=== PATIENT | female | born 1995 | race Caucasian/White ===

== ENCOUNTER 2017-05-10 05:34 | Outpatient (CLI) | payer OTHER ==
[~2017-05-10] VITALS: Ht 157.5 cm; Wt 65.8 kg
[2017-05-10] MEDS ORDERED: NORE-45 PO (09:16)
== END 2017-05-10 09:33 ==
LOC: PREOP 05:34
PROVIDERS: ATTEND Surgery
DX: Z01.818 Encounter for other preprocedural examination (principal); L72.9 Follicular cyst of the skin and subcutaneous tissue, unspecified

== ENCOUNTER 2017-05-16 08:33 | Day surgery (SDC) | payer OTHER ==
[~2017-05-16] VITALS: Ht 157.5 cm; Wt 65.8 kg
[~2017-05-16 08:33] MED LIST: NORE-45 PO
--- OUTSIDE RECORDS SUMMARY | 2017-05-16 08:37 | XMS REPORT | Referral Summary ---
Author Author Via [facility] Shrestha, Kiki, Optometry Organization [facility] Christopher, Kiki, Optometry Address Unknown Phone Unavailable Care Team Providers Care Shearer Helper Name Role Phone BunnyMiguel PCP Encounter VC Date(s): 08/17/15 - 08/17/15 [facility] Shrestha, Kiki, Optometry [address] [place], [place] [address] Discharge Diagnosis: Giant papillary conjunctivitis Discharge Disposition: 01-Home or Self Care Attending Physician: Ayanna Nolen OD Admitting Physician: Ayanna Nolen OD Vital Signs No data available for this section Problem List Condition Effective Dates Status Health Status Informant Contact lens Active intolerance(Confirme d) Giant papillary Active conjunctivitis(Confi rmed) Myopia with Active astigmatism and presbyopia(Confirmed ) Allergies, Adverse Reactions, Alerts Substance Reaction Severity Status amoxicillin Active Cipro Active Septra DS Rash Active Hives Medications estradiol 0.5 mg oral tablet 1 tabs, Oral, Daily, # 30 tabs, 0 Refill(s), Pharmacy: [facility] [id number], 1 tabs Oral Daily Start Date: 04/23/14 Status: Ordered Ortho-Novum 1/35 oral tablet See Instructions, 1 TABS ORAL DAILY, # 28 tabs, eRx: [facility] [id number] , 1 TABS ORAL DAILY Start Date: 08/13/15 Status: Ordered Results No data available for this section Immunizations Vaccine Date Refusal Reason tetanus/diphth/pertuss (Tdap) adult/adol 01/09/10 pneumococcal 23-polyvalent vaccine 01/17/09 varicella virus vaccine 01/09/10 varicella virus vaccine 01/17/09 Procedures No data available for this section Social History Social History Type Response Smoking Status Never smoker Assessment and Plan Extracted from: Title: Ambulatory Patient Education Author: Ayanna Nolen OD Date: Follow Up With: Where: When: Ayanna Nolen [address]; [place] [address] [facility] (1) In 1 week 08/24/2015 Comments: Extracted from: Title: GHADA MENDEZ GPC Author: Ayanna Nolen OD Date: 08/17/15 Impression and Plan Diagnosis Giant papillary conjunctivitis ([id number] H10.89, Discharge, Medical). Course: Improving. Plan: Due to significant improvement in papillae we are going to continue with drops x 1 week. We will order new trials of Biofinity Toric and Purevision Toric 8.7 -1.00-0.75x90/-1.25-0.75x80 and hold for RCK appt in 1 week. Explained all findings/plan to patient. RTc 1 week RCK. Patient Instructions: ; Ayanna Nolen In 1 week 08/24/2015. Counseled: Patient, Regarding diagnosis, Regarding medications, Verbalized understanding. Prescription: Ophthalmology Rx ([facility]) No qualifying data available.
--- OUTSIDE RECORDS SUMMARY | 2017-05-16 08:37 | XMS REPORT | Referral Summary ---
Author Author [facility] Shrestha, Kiki, [facility] Address Unknown Phone Unavailable Care Team Providers Care Loss Control Engineer Name Role Phone Miguel Hollis PCP Encounter VC Date(s): 09/07/15 - 09/07/15 [facility] Shrestha, Kiki, Optometry [address] [place], [place] [address] Discharge Diagnosis: Myopia with astigmatism and presbyopia Discharge Diagnosis: Giant papillary conjunctivitis Discharge Disposition: [...] Daily, # 30 tabs, 0 Refill(s), Pharmacy: [id number], 1 tabs Oral Daily Start Date: 04/23/14 Status: Ordered Ortho-Novum 1/35 oral tablet See Instructions, 1 TABS ORAL DAILY, # 28 tabs, eRx: [facility] [id number] , 1 TABS ORAL DAILY Start Date: [...] Patient Education Author: Ayanna Nolen OD Date: 09/06 Ophthalmology Myopia Nearsightedness (myopia) is when objects that are far away cannot be seen clearly. This usually happens because the eye is either longer than normal or bends (refracts) the light too much. As a result, the image is blurred. Myopia also often develops in the pre-teen years and progresses through the teens. You may see them holding things close to their eyes to see. You may also notice children sitting close to the television or white board in school. It generally stabilizes by the end of the teenage years. Myopia that continues to develop is called progressive myopia. CAUSES Growth spurts in children. Certain drugs and medicines. Some other causes of myopia (secondary myopia) can happen from other medical conditions such as: Developing cataracts. High blood sugar (e.g. uncontrolled diabetes). . Premature . Other diseases of the eye. SYMPTOMS People with myopia have blurred vision in the affected eye(s) for anything far away, but can usually find a point up close at which they can see clearly. DIAGNOSIS An customs and border protection officer or mystery shopper can diagnose myopia with tests using a series of lenses in front of the eye and the eye reading chart. TREATMENT Glasses or contact lenses. Ophthalmologists can use painless laser treatments to change the shape of the clear covering at the front of the eye (cornea). SEEK IMMEDIATE MEDICAL CARE IF: You get a rapid blurring of vision in one or both eyes. This information is not intended to replace advice given to you by your health care provider. Make sure you discuss any questions you have with your health care provider. Document Released: 05/20/2006 Document Revised: 08/11/2012 Document Reviewed: ExitCare Patient Information 2015 [employer]. Follow Up With: Where: When: Ayanna Nolen [address]; Via [place] [id number] [facility] (1) In 1 year 09/06/2016 Comments: Extracted from: Title: GHADA CLP AND ANDREA GPC Author: Ayanna Nolen OD Date: 09/07/15 Impression and Plan Diagnosis Myopia with astigmatism and presbyopia ([id number] H52.13, Discharge, Medical). Giant papillary conjunctivitis ([id number]-HL H10.89, Discharge, Medical). Course: 1. chronic/stable 2. improving. Plan: 1. Due to good VA, fit, handling and patient comfort we will stay with Biofinity Toric 8.7 -1.00-0.75x90/-1.50-0.75x80 and order 1 box/eye. We will call patient for pick-up. Monitor at annual or PRN per changes/concerns 2. Patient is to use her last bottle of Pataday 1 gtt BID OU and when it is gone we are going to discontinue drop therapy. If patient has any recurrence of itching, blur, build-up or discomfort with lenses she is to remove lenses and call for evaluation. Otherwise we will monitor at annual examination. Explained all findings/plan to patient. RTC 1 yr . Patient Instructions: Tato, ; Ayanna Nolen In 1 year 09/06/2016. Counseled: Patient, Regarding diagnosis, Regarding treatment, Regarding medications, Verbalized understanding. Prescription: Ophthalmology Rx ([facility]) No qualifying data available.
--- OUTSIDE RECORDS SUMMARY | 2017-05-16 08:37 | XMS REPORT | Referral Summary ---
Author Author [facility] Shrestha, Kiki, Optometry Organization [facility] Almanzar, Kiki, Optometry Address Unknown Phone Unavailable Care Team Providers Care Rn Acute Dialysis Name Role Phone Miguel Hollis PCP Encounter VC Date(s): 03/10/15 - 03/10/15 [facility] Shrestha, Kiki, Optometry [address] [place], [place] [address] Discharge Diagnosis: Myopia with astigmatism and presbyopia Discharge Disposition: 01-Home or Self Care Attending [...] Daily, # 30 tabs, 0 Refill(s), Pharmacy: [facility] [id number], 1 tabs Oral Daily Start Date: 04/23/14 Status: Ordered Ortho-Novum 1/35 oral tablet See Instructions, 1 TABS ORAL DAILY, # 28 tabs, eRx: [facility] [id number] , 1 TABS ORAL DAILY Start Date: [...] Patient Education Author: Ayanna Nolen OD Date: 03/10/15 Ophthalmology Myopia Nearsightedness (myopia) is when objects [...] which they can see clearly. DIAGNOSIS An bessemer regulator or sugar cane planter machine operator can diagnose myopia with tests using a series of lenses in front of the eye and the eye reading chart. TREATMENT Glasses or contact lenses. Ophthalmologists can use painless laser treatments to change the shape of the clear covering at the front of the eye (cornea). SEEK IMMEDIATE MEDICAL CARE IF: You get a rapid blurring of vision in one or both eyes. Document Released: 05/20/2006 Document Revised: 08/11/2012 Document Reviewed: ExitCare Patient Information 2015 [employer] [facility]. This information is not intended to replace advice given to you by your health care provider. Make sure you discuss any questions you have with your health care provider. Follow Up With: Where: When: Ayanna Nolen [address]; [place] [phone] [facility] (1) In 1 year 03/10/2016 Comments: Extracted from: Title: GHADA EYE EXAM Author: Ayanna Nolen OD Date: 03/10/15 Impression and Plan Diagnosis Myopia with astigmatism and presbyopia ([id number]-[id number] H52.13, Discharge, Medical). Course: chronic/stable. Plan: No change in SRX/CLRX. Order 2 boxes/eye Air Optix Toric 8.7 -1.00- 0.75x90/-1.25-0.75x80 and call patient for pick-up. NO ocular health or visual function concerns or changes noted. Explained all findings to patient. RTC 1 yr or PRN per changes/concerns. Patient Instructions: Eye - Tato, ; Ayanna Nolen In 1 year 03/10/2016. Counseled: Patient, Verbalized understanding. Prescription: Ophthalmology Rx (ST) No qualifying data available.
--- OUTSIDE RECORDS SUMMARY | 2017-05-16 08:37 | XMS REPORT | Continuity of Care Document ---
Author Author Via [facility] Organization [facility] Address Unknown Phone Unavailable Allergies Medications Problems Procedures Results Encounters ACCT No. Visit Date/Time Discharge Status Pt. Type Provider Facility Loc./Unit Complaint [id number] 03/27/2013 12:55:00 03/27/2013 23 :59:59 CLS Outpatient
--- OUTSIDE RECORDS SUMMARY | 2017-05-16 08:37 | XMS REPORT | Referral Summary ---
Author Author [facility] Shrestha, Kiki, Optometry [facility] Address Unknown Phone Unavailable Care Team Providers Care Cover Maker Name Role Phone Miguel Hollis PCP Encounter VC Date(s): 08/24/15 - 08/24/15 [facility] Shrestha, Kiki, Optometry [address] [place], [place] [address] Discharge Diagnosis: Myopia with astigmatism and presbyopia [...] Daily, # 30 tabs, 0 Refill(s), Pharmacy: [facility] [id number], 1 tabs Oral Daily Start Date: 04/23/14 Status: Ordered Ortho-Novum 1/35 oral tablet See Instructions, 1 TABS ORAL DAILY, # 28 tabs, eRx: [facility] [id number] , 1 TABS ORAL DAILY Start Date: [...] Patient Education Author: Ayanna Nolen OD Date: Ophthalmology Myopia Nearsightedness (myopia) is when objects [...] which they can see clearly. DIAGNOSIS An bearingizer or meat grader can diagnose myopia with tests using a [...] 08/11/2012 Document Reviewed: ExitCare Patient Information 2015 [employer]. Follow Up With: Where: When: Ayanna Nolen [address]; [place] [address] [facility] (1) In 2 weeks 09/07/2015 Comments: Extracted from: Title: GHADA TOPETE/CLF Author: Ayanna Nolen OD Date: 08/24/15 Impression and Plan Diagnosis Myopia with astigmatism and presbyopia ([id number]-BR H52.13, Discharge, Medical). Giant papillary conjunctivitis ([id number]-OY H10.89, Discharge, Medical). Course: 1. improving 2. chronic. Plan: 06/04. Due to significant improvement in appearance of papillae OD we are going to switch patient from PF to Pazeo antihistamine drops 1 gtt BID with instructions to instill prior to inserting lenses by 5 minutes and after removal of lenses. We fit patient with Biofinity Toric lenses and she is to start wearing 4-5 hours for a few days and then increasing wear time by 1-2 hours daily until up to a full days wear. RTC 2 weeks RCK/CLP. Patient instructed to remove lenses if she begins to feel any irritation or itchiness OD. Patient understands. Patient Instructions: Myopia, ; Ayanna Nolen In 2 weeks 09/07/2015. Counseled: Patient, Regarding diagnosis, Regarding treatment, Verbalized understanding. Prescription: Ophthalmology Rx ([facility]) No qualifying data available.
--- OUTSIDE RECORDS SUMMARY | 2017-05-16 08:37 | XMS REPORT | Referral Summary ---
Author Author [facility] Shrestha, Kiki, Optometry Organization [facility] Christopher, Kiki, Optometry Address Unknown Phone Unavailable Care Team Providers Care Mesh Cutter Name Role Phone Miguel Hollis PCP Encounter VC Date(s): 03/17/15 - 03/17/15 [facility] Shrestha, Kiki, Optometry [address] [place], [place] [address] Discharge Disposition: 01-Home or Self Care Attending Physician: Ayanna Nolen OD Vital Signs No [...] Daily, # 30 tabs, 0 Refill(s), Pharmacy: [facility] [id number], 1 tabs Oral Daily Start Date: 04/23/14 Status: Ordered Ortho-Novum 1/35 oral tablet See Instructions, 1 TABS ORAL DAILY, # 28 tabs, eRx: [facility] [id number] , 1 TABS ORAL DAILY Start Date: 08/13/15 Status: Ordered Results No data available for this section Immunizations Vaccine Date Refusal Reason tetanus/diphth/pertuss (Tdap) adult/adol 01/09/10 pneumococcal 23-polyvalent vaccine 01/17/09 varicella virus vaccine 01/09/10 varicella virus vaccine 01/17/09 Procedures No data available for this section Social History Social History Type Response Smoking Status Never smoker Assessment and Plan No data available for this section
--- OUTSIDE RECORDS SUMMARY | 2017-05-16 08:37 | XMS REPORT | Referral Summary ---
Author Author [facility] Shrestha, Kiki, Optometry [facility] Address Unknown Phone Unavailable Care Team Providers Care Professor Of Rhetoric Name Role Phone Miguel Hollis PCP Encounter VC Date(s): 03/10/15 - 03/10/15 [facility] Shrestha, Kiki, Optometry [address], [place] [address] Discharge Diagnosis: Myopia with astigmatism and presbyopia Discharge Disposition: 01-Home or Self Care Attending Physician: Ayanna Nolen OD Admitting Physician: Ayanna Nolen OD Vital Signs No data available for this section Problem List Condition Effective Dates Status Health Status Informant Myopia with Active astigmatism and presbyopia(Confirmed ) Allergies, Adverse Reactions, Alerts Substance Reaction Severity Status amoxicillin Active Cipro Active Septra DS Rash Active Hives Medications estradiol 0.5 mg oral tablet 1 tabs, Oral, Daily, # 30 tabs, 0 Refill(s), Pharmacy: [facility] [id number], 1 tabs Oral Daily Start Date: 04/23/14 Status: Ordered Ortho-Novum 1/35 oral tablet See Instructions, 1 TABS ORAL DAILY, # 28 tabs, 5 Refill(s), eRx: [facility] [id number], 1 TABS ORAL DAILY Start Date: 01/22/15 Status: Ordered Results No data available for [...] which they can see clearly. DIAGNOSIS An tobacco sampler or logging rafter laborer can diagnose myopia with tests using a [...] 08/11/2012 Document Reviewed: ExitCare Patient Information 2015 [employer]. This information is not intended to replace advice given to you by your health care provider. Make sure you discuss any questions you have with your health care provider. Follow Up With: Where: When: Ayanna Nolen [address]; [place] [address] Business (1) In 1 year 03/10/2016 Comments: Extracted from: Title: GHADA EYE EXAM Author: Ayanna Nolen OD Date: 03/10/15 Impression and Plan Diagnosis Myopia with astigmatism and presbyopia ([id number] H52.13, Discharge, Medical). Course: chronic/stable. Plan: No change in SRX/CLRX. Order 2 boxes/eye Air Optix Toric 8.7 -1.00- 0.75x90/-1.25-0.75x80 and call patient for pick-up. NO ocular health or visual function concerns or changes noted. Explained all findings to patient. RTC 1 yr or PRN per changes/concerns. Patient Instructions: Eye - Myopia, ; Ayanna Nolen In 1 year 03/10/2016. Counseled: Patient, Verbalized understanding. Prescription: Ophthalmology Rx ([facility]) No qualifying data available.
--- OUTSIDE RECORDS SUMMARY | 2017-05-16 08:37 | XMS REPORT | Referral Summary ---
Author Author [facility] Shrestha, Kiki, Optometry Organization [facility] Christopher, Kiki, Optometry Address Unknown Phone Unavailable Care Team Providers Care Inkjet Operator Name Role Phone Miguel Hollis PCP Encounter VC Date(s): 03/17/15 - 03/17/15 [facility] Shrestha, Kiki, Optometry [address] [place], [place] [address] Discharge Disposition: 01-Home or Self Care [...] Daily, # 30 tabs, 0 Refill(s), Pharmacy: [facility] [id number], 1 tabs Oral Daily Start Date: 04/23/14 Status: Ordered Ortho-Novum 1/35 oral tablet See Instructions, 1 TABS ORAL DAILY, # 28 tabs, 5 Refill(s), eRx: [facility] [id number], 1 TABS ORAL DAILY Start Date: 01/22/15 [...]
--- OUTSIDE RECORDS SUMMARY | 2017-05-16 08:37 | XMS REPORT | Referral Summary ---
Author Author [facility] Shrestha, Kiki, Optometry Organization [facility] Christopher, Kiki, Optometry Address Unknown Phone Unavailable Care Team Providers Care Installer Technician Name Role Phone Miguel Hollis PCP Encounter VC Date(s): 08/03/15 - 08/03/15 [facility]rest[facility], Kiki, Optometry [address] [place], [place] [address] Discharge Diagnosis: Contact lens intolerance Discharge Diagnosis: Giant papillary conjunctivitis Discharge Disposition: [...] Daily, # 30 tabs, 0 Refill(s), Pharmacy: [facility] [id number], 1 tabs Oral Daily Start Date: 04/23/14 Status: Ordered Ortho-Novum 1/35 oral tablet See Instructions, 1 TABS ORAL DAILY, # 28 tabs, 0 Refill(s), Pharmacy: [facility] [id number] Start Date: 07/08/15 Status: Ordered Pred Forte 1% ophthalmic suspension 1 drops, Eye-Both, TID, X 14 days, # 5 mL, 0 Refill(s), Pharmacy: [facility] [id number] Start Date: 08/03/15 Stop Date: 08/17/15 Status: Ordered Results No data available for this section Immunizations Vaccine Date Refusal Reason tetanus/diphth/pertuss (Tdap) adult/adol 01/09/10 pneumococcal 23-polyvalent vaccine 01/17/09 varicella virus vaccine 01/09/10 varicella virus vaccine 01/17/09 Procedures No data available for this section Social History Social History Type Response Smoking Status Never smoker Assessment and Plan Extracted from: Title: Ambulatory Patient Education Author: Ayanna Nolen OD Date: 08/02 Follow Up With: Where: When: Ayanna Nolen [address]; [place] [address] [employer] [facility] In 2 weeks 08/17/2015 Comments: Extracted from: Title: GHADA EYE PROBLEM Author: Ayanna Nolen OD Date: 08/03/15 Impression and Plan Diagnosis Contact lens intolerance (OAB22-KG Z78.9, Discharge, Medical). Giant papillary conjunctivitis (VCM56-EL H10.89, Discharge, Medical). Course: 1/2. new onset/persistent/symptomatic. Plan: 1/2. Patient is to discontinue CL wear and initiate PF 1% OU 1 gtt TID for 2 weeks. Patient is to close eye after instillation for 30-60 seconds to increase contact time with the palpebral conjunctiva. RTc 2 weeks for RCK. Discussed findings and causes for allergic reaction on lid to CL. uncertain when we will be able to get into CL's again. RTc 2 weeks. Patient Instructions: ; Ayanna Nolen In 2 weeks 08/17/2015. Counseled: Patient, Regarding diagnosis, Regarding treatment, Regarding medications, Verbalized understanding. Prescription: Ophthalmology Rx ([facility]) No qualifying data available.
[2017-05-16] MEDS ORDERED: CLINDAMYCIN 600 MG/4ML (CLEOCIN) VIAL ONE (08:47)
[2017-05-16] MEDS ORDERED: NS (IVPB) 50 ML ONE (08:48)
[2017-05-16] MEDS ORDERED: CLINDAMYCIN 600 MG/NS 50 ML IVPB IV ONE ×2 (09:15)
[2017-05-16] MEDS ORDERED: LACTATED RINGERS 1,000 ML IV PRN ×2 (09:38→10:19)
[2017-05-16] MEDS ORDERED: CLINDAMYCIN INJECTION 600 MG in NS (IVPB) 50 ML IV ONE (09:45)
[2017-05-16] MEDS ORDERED: BUPIVACAINE 0.5% 30 ML (SENSORCAINE) VIAL ONE (10:15)
[2017-05-16] MEDS ORDERED: LIDOCAINE 1% INJ 20 ML (XYLOCAINE) VIAL ONE (10:15)
--- NOTE | 2017-05-16 10:25 | Progress Note-Pre Operative ---
Pre-Operative Progress Note H&P Reviewed The H&P was reviewed, patient examined and no changes noted. Date Seen by Provider: May 16, 2017 Time Seen by Provider: 10:25 Date H&P Reviewed: May 16, 2017 Time H&P Reviewed: 10:25 Pre-Operative Diagnosis: CYST RIGHT AXILLA SILVIA GRAVES DO May 16, 2017 10:25
[2017-05-16 10:31] VITALS: BP 109/68
[2017-05-16] MEDS ORDERED: LIDOCAINE PF 2% 5 ML (XYLOCAINE) VIAL ONE (10:37)
[2017-05-16] MEDS ORDERED: proPOfol 200 MG/20 ML (DIPRIVAN) VIAL IV ONE (10:37)
[2017-05-16] MEDS ORDERED: ONDANSETRON 4 MG/2 ML (SDV) Z0FRAN ONE (10:37)
[2017-05-16] MEDS ORDERED: fentaNYL INJECTION 100 MCG/2 ML AMP ONE (10:37)
[2017-05-16] MEDS ORDERED: MIDAZOLAM 2 MG/2 ML (VERSED) VIAL ONE (10:37)
--- NOTE | 2017-05-16 13:08 | Progress Note-Post Operative ---
Post-Operative Progess Note Surgeon (s)/Cad Specialist (s) Surgeon SILVIA GRAVES DO Cad Specialist: na Pre-Operative Diagnosis CYST RIGHT AXILLA Post-Operative Diagnosis same Procedure & Operative Findings Date of Procedure 05/16/17 Procedure Performed/Findings excision right axillary cyst Anesthesia Type general Estimated Blood Loss Estimated blood loss (mL): minimal Specimens/Packing Specimens Removed right axillary cyst SILVIA GRAVES DO May 16, 2017 13:08
[2017-05-16] MEDS ORDERED: HYDR-3812 PO (13:09)
--- NOTE | 2017-05-16 13:11 | Discharge Inst-Simple/Standard ---
Discharge Inst-Standard Discharge Medications New, Converted or Re-Newed RX: RX on Chart Patient Instructions/Follow Up Plan of Care/Instructions/FU: 2 weeks Kassy Activity as Tolerated: No Discharge Diet: Regular Diet Other Inst to Patient Follow up Appt: Make appointment for 1 week. Instructions: No strenuous activity. May shower in 24 hours, no tub bath or soaking. Use incentive spirometer at home as directed. No Smoking Skin/Wound Care: May remove bandages. You have special glue over incision it will fall off on its own. Symptoms to Report: Appetite Changes, Extremity Discoloration, Numbness/Tingling, Swelling Increased , Bleeding Excessive, Eyesight Changes, Pain Increased, Urine Color Change, Constipation(Persistent), Fever over 101 degree F, Pain/Pressure in chest, Urinating Difficulty, Cough Up/Vomit Blood, Heart Beat Irreg/Pounding, Pain/ Pressure in jaw, Vaginal Bleeding Increase, Cramps in feet or legs, Lightheadedness, Pain/Pressure in shoulder, Diarrhea(Persistent), Memory Changes Suddenly, Questions/Concerns, Weight gain consecutive days, Dizziness/ Fainting, Nausea/Vomiting, Shortness of Breath, Weight gain over 2 pounds If questions or concerns contact your physician Or seek help at emergency department. SILVIA GRAVES DO May 16, 2017 13:11
[2017-05-16] MEDS ORDERED: MEPERIDINE (DEMEROL) INJ 50 MG/ML IVP PRN (13:15)
[2017-05-16] MEDS ORDERED: HYDROmorphone (DILAUDID) 2 MG/ML VIAL IVP PRN (13:15)
[2017-05-16] MEDS ORDERED: ONDANSETRON 4 MG/2 ML (SDV) Z0FRAN IVP PRN (13:15)
[2017-05-16] MEDS ORDERED: DEXAMETHASONE 10 MG/ML (DECADRON) 1 ML VIAL ONE (13:15)
[2017-05-16] MEDS ORDERED: SEVOFLURANE (ULTANE) 15 ML INHAL SOLN ONE (13:15)
[2017-05-16] MEDS ORDERED: morphine INJ 10 MG/ML 1ML (SYR OR VIAL) IVP PRN (13:15)
[2017-05-16 14:05] VITALS: BP 118/71
[2017-05-16 14:35] VITALS: BP 100/63
[2017-05-16 15:05] VITALS: BP 110/68
[2017-05-16 15:15] VITALS: BP 110/68
--- NOTE | 2017-05-16 18:01 | OPERATIVE REPORT ---
DATE OF SERVICE: 05/16/2017 PREOPERATIVE DIAGNOSIS: Right axillary cyst. POSTOPERATIVE DIAGNOSIS: Right axillary cyst. PROCEDURE: Excision right axillary cyst 1 x 1 x 2 cm. SURGEON: Silvia Elena DO. ANESTHESIA: General. ESTIMATED BLOOD LOSS: Minimal. COMPLICATIONS: None. INDICATIONS: The patient is a 21-year-old female with recurrent right axillary cyst. This has been drained previously. She understands risks and benefits of procedure and wished to proceed with procedure. Consent was signed in the chart. PROCEDURE: The patient was taken to the operating suite, she was prepped and draped in sterile fashion. Surgical pause was performed. Elliptical incision was made around the previous scar. Cautery was used to dissect down through subcutaneous tissues and the cyst was partially transected. This was then further dissected around. Overall dimensions approximately 1 x 1 x 2 cm, removing the skin and subcutaneous tissues including the cyst. The area was then irrigated with copious amounts of irrigation. The area was then infiltrated with local anesthetic of 0.5% Marcaine and 1% lidocaine 50:50 ratio. The subcutaneous tissues were then reapproximated using 3-0 Vicryl. The skin was then closed using Dermabond. The patient tolerated procedure well without any complications. She was taken to recovery room in stable condition. Job ID: [id number] DocumentID: [id number] Dictated Date: 05/16/2017 13:13:42 Geothermal Operations Engineer Date: 05/16/2017 18:00:02 Dictated By: SILVIA ELENA DO
== END 2017-05-16 15:15 | disposition home or self-care (01) ==
LOC: SDC 08:33
PROVIDERS: ATTEND Surgery
DX: L72.9 Follicular cyst of the skin and subcutaneous tissue, unspecified (principal)
CPT/HCPCS: 84703

== ENCOUNTER 2017-11-29 12:38 | Outpatient (CLI) | payer OTHER ==
[2017-11-29] VITALS (15 sets, daily range): BP systolic 99–127; BP diastolic 54–85
[~2017-11-29] VITALS: Ht 157.5 cm; Wt 65.8 kg
[~2017-11-29 12:38] MED LIST changes: -CATHETER FLUSH 10 ML SYR IV PRN; -IOHEXOL 350 MG/ML 100 ML (OMNIPAQUE 350) VIAL IV ONE; -NS 250 ML (IVPB) BAG IV ONE; -RECEIVED CONTRAST (Hold Metformin) IV SCH
[2017-11-29] MEDS ORDERED: NS IV 1000 ML 1,000 ML IV STA (12:58)
[2017-11-29] MEDS ORDERED: MIDAZOLAM 2 MG/2 ML (VERSED) VIAL IVP PRN (13:00)
[2017-11-29] MEDS ORDERED: LIDOCAINE 1% INJ 20 ML 20 ML VIAL INJ ONE (13:00)
[2017-11-29] MEDS ORDERED: fentaNYL INJECTION 100 MCG/2 ML AMP IVP PRN (13:00)
[2017-11-29 13:21] LABS: RED BLOOD COUNT 5.16 10^6/uL (4.35-5.85); RED CELL DISTRIBUTION WIDTH 12.4 % (10.0-14.5)
[2017-11-29 13:36] LABS: INR 1.1 (0.8-1.4); PROTHROMBIN TIME PATIENT 14.2 SEC (12.2-14.7)
--- NOTE | 2017-11-29 14:00 | Diagnostic Imaging Report ---
INDICATION: Persistent cough. TIME OF EXAM: 2:10 PM No prior studies are available for comparison. FINDINGS: The heart size is normal. The lungs appear clear. No infiltrates are detected. The pulmonary vascularity is normal. No effusion or pneumothorax is seen. IMPRESSION: No acute cardiopulmonary process is detected. Dictated by: Dictated on workstation # [id number]
[2017-11-29] MEDS ORDERED: ACETAMINOPHEN 500 MG TAB (TYLENOL) PO ONE (14:45)
[2017-11-29] MEDS ORDERED: HYDROcodone/APAP 5 MG/325 MG (LORTAB) TAB ONE (14:50)
[2017-11-29] MEDS ORDERED: HYDROcodone/APAP 5 MG/325 MG (LORTAB) TAB PO ONE (15:00)
--- NOTE | 2017-11-29 15:26 | Pre-Op Note & Conscious Sedat ---
Pre-Operative Progress Note H&P Reviewed The H&P was reviewed, patient examined and no changes noted. Date H&P Reviewed: Nov 29, 2017 Time H&P Reviewed: 13:00 Pre-Op Diagnosis: Abdominal mass Conscious Sedation Pre-Proced Time Reviewed: 13:00 ASA Class: 2 Airway Mallampati Classification: ([place] appropriate class) I. II. III, IV Lungs Heart ASA score ASA 1: a normal healthy patient ASA 2: a patient with a mild systemic disease (mid diabetes, controlled hypertension, obesity ASA 3: a patient with a severe systemic disease that limits activity (angina , COPD, prior Myocardial infarction) ASA 4: a patient with an incapacitating disease that is a constant threat to life (CHF, renal failure) ASA 5: a moribund patient not expected to survive 24 hrs. (ruptured aneurysm) ASA 6: a declared brain patient whose organs are being harvested. For emergent operations, add the letter E after the classification Grade 1 Sedation Plan: Analgesia, Amnesia, Plan communicated to team members, Discussed options with patient/fam, Discussed risks with patient/fam Note The patient is an appropriate candidate to undergo the planned procedure, sedation, and anesthesia. The patient immediately re-assessed prior to indication. AKIN BOYKIN MD Nov 29, 2017 15:26
--- NOTE | 2017-11-29 16:00 | Diagnostic Imaging Report ---
INDICATION: Abdominal mass. Patient presents for CT-guided biopsy. FINDINGS: Informed written consent was obtained from the patient. Patient was brought to the CT suite, placed on table in the supine position. Axial imaging of the abdomen was performed to evaluate appropriate entry site. Procedure was performed with conscious sedation with radiology nursing and constant patient monitoring. Patient was administered a total of 1 mg of Versed intravenously as well as 50 mcg of fentanyl. Skin of the left abdomen was prepped and draped in the usual sterile fashion. Small amount of 1% lidocaine was utilized for local anesthesia. 18-gauge coaxial Tem[place] needle was advanced and placed with its tip in solid left upper quadrant mass located just inferior to the spleen. Approximately three core biopsies were obtained. The needle was then positioned more cephalad within the mass and approximately four additional core biopsies were obtained. Needle was withdrawn and hemostasis was obtained. The patient tolerated the procedure well and left the department in stable condition. IMPRESSION: Successful CT-guided biopsy of the left upper quadrant mass, utilizing conscious sedation. Pathology results are currently pending. Dictated by: Dictated on workstation # [id number]
== END 2017-11-29 16:45 | disposition home or self-care (01) ==
LOC: SDC 12:38 → SURG 14:34 → SDC 16:45
PROVIDERS: ATTEND Internal Medicine
DX: C49.A2 Gastrointestinal stromal tumor of stomach (principal)
CPT/HCPCS: 36415; 71046; 77012; 85027; 85610; 85730; 88305; 88341; 88342; 99156

== ENCOUNTER → 2017-11-29 | Outpatient (CLI) | payer OTHER ==
[~2017-11-29] MED LIST changes: +ACHD5005 PO; +CATHETER FLUSH 10 ML SYR IV PRN; +IOHEXOL 350 MG/ML 100 ML (OMNIPAQUE 350) VIAL IV ONE; +NS 250 ML (IVPB) BAG IV ONE; +RECEIVED CONTRAST (Hold Metformin) IV SCH
--- NOTE | 2017-11-29 11:56 | Diagnostic Imaging Report ---
PROCEDURE: CT abdomen and pelvis with contrast. TECHNIQUE: Multiple contiguous axial images were obtained through the abdomen and pelvis after administration of intravenous contrast. INDICATION: Abdominal pain for 2-3 days and back pain. Patient also has elevated white blood cell count. COMPARISON: No prior CT studies are available for comparison. FINDINGS: The lung bases are clear. The liver contains numerous low-density masses throughout the right and left lobes. These cannot be characterized as purely cystic and are concerning for solid lesions. Largest is in the dome of the right lobe posteriorly measuring approximately 2 cm. Lesion in the left lobe measures 1.6 cm. The liver is enlarged at 20 cm. The gallbladder is unremarkable. There is a mass located in the left upper quadrant with mixed solid and cystic components. This measures approximately 9.2 cm transverse by approximately 5.9 cm AP. The mass is adjacent to the posterior wall of the stomach. This appears to be at the level of the lower pole of the spleen but separate from the spleen. This also appears to be separate from the pancreas as well as adjacent small bowel loops and colon. The more medial component is lower density which may represent necrosis. A more solid component is laterally located. There are regional areas of nodularity suggestive of regional lymphadenopathy. There are some enlarged lymph nodes in the gastrohepatic region at the level of the gastric cardia. The largest node measures approximately 2 cm in diameter. No adrenal mass is identified. The kidneys are unremarkable. Aorta is non-aneurysmal. No definite central retroperitoneal lymphadenopathy is seen. Small and large bowel loops are normal caliber. No obstruction is seen. There is minimal free fluid in the pelvis. The bladder and uterus are unremarkable. No adnexal mass is seen. The bony structures appear intact. Moderate stool in the colon is present. IMPRESSION: Left upper quadrant mass adjacent to or inseparable from the posterior wall of the stomach. This appears to be separate from the pancreas and bowel loops. Primary consideration would include a GI tumor versus lymphoma or sarcoma. There are enlarged regional lymph nodes present adjacent to the gastric cardia in the gastrohepatic region concerning for metastatic nodes. In addition, there are numerous rounded low density masses throughout the liver concerning for hepatic metastatic disease. Dictated by: Dictated on workstation # [id number]
== END ==
LOC: RAD 09:55
PROVIDERS: ATTEND Internal Medicine
DX: R19.02 Left upper quadrant abdominal swelling, mass and lump (principal); R59.0 Localized enlarged lymph nodes; D72.829 Elevated white blood cell count, unspecified; M54.9 Dorsalgia, unspecified
CPT/HCPCS: 74177